=== PATIENT | male | born 1980 | race Two or more races ===

== ENCOUNTER 2017-06-30 22:16 | Inpatient (IN) | payer OTHER ==
[~2017-06-30] VITALS: Ht 185.4 cm; Wt 110.4 kg
[2017-06-30] MEDS ORDERED: LABETALOL HCL 5 MG/ML 20ML VIAL IV STA (22:33)
--- NOTE | 2017-06-30 23:17 | Diagnostic Imaging Report ---
EXAM: CHEST 2 VIEWS, PA and lateral INDICATION: Shortness of breath COMPARISON: None FINDINGS: LINES/TUBES: None LUNGS: Right lower lobe atelectasis. PLEURA: Small right pleural effusion. HEART AND MEDIASTINUM: Marked cardiomegaly. BONES AND SOFT TISSUES: No acute findings. IMPRESSION: Marked cardiomegaly and small right pleural effusion. Signed by: Dr. Nayeli Houston M.D. on 06/30/2017 11:14 PM
[2017-06-30 23:25] LABS: BASOPHILS # (AUTO) 0.1 (0.0-0.1); BASOPHILS % 0.6 % (0.0-1.0); EOSINOPHILS # (AUTO) 0.5 (0.0-0.4); EOSINOPHILS % 4.1 % (0.0-6.0); HEMATOCRIT 46.6 % (38.2-49.6); HEMOGLOBIN 15.1 g/dL (14.0-18.0); LYMPHOCYTES # (AUTO) 2.4 (1.0-3.2); LYMPHOCYTES % 18.7 % (18.0-39.1); MEAN CORPUSCULAR HEMOGLOBIN 27.6 pg (28-32); MEAN CORPUSCULAR HGB CONC 32.4 g/dL (31-35); MEAN CORPUSCULAR VOLUME 85.2 fL (81-99); MONOCYTES # (AUTO) 0.7 (0.2-0.8); MONOCYTES % 5.3 % (4.4-11.3); NEUTROPHILS # (AUTO) 8.9 (2.1-6.9); NEUTROPHILS % 70.8 % (38.7-80.0); PLATELET COUNT 322 x10e3/uL (140-360); RED BLOOD COUNT 5.47 x10e6/uL (4.3-5.7); RED CELL DISTRIBUTION WIDTH 14.6 % (11.7-14.4)
[2017-06-30 23:29] LABS: INR 1.54; PROTHROMBIN TIME 17.4 seconds (11.9-14.5)
[2017-06-30 23:30] LABS: PARTIAL THROMBOPLASTIN TIME 34.4 seconds (23.8-35.5)
[2017-06-30 23:38] LABS: ALBUMIN 3.7 g/dL (3.5-5.0); ANION GAP 19.5 mmol/L (8-16); CALCIUM 9.3 mg/dL (8.4-10.2); CREATININE, SERUM 1.58 mg/dL (0.72-1.25); POTASSIUM 3.5 mmol/L (3.5-5.1)
[2017-06-30 23:45] LABS: CREATINE KINASE MB 2.2 ng/mL (0-5.0)
[2017-07-01] VITALS (9 sets, daily range): BP systolic 110–149; BP diastolic 68–99
[2017-07-01] MEDS ORDERED: LISINOPRIL 10 MG TAB PO STA (01:15)
--- OUTSIDE RECORDS SUMMARY | 2017-07-01 01:58 | XMS REPORT ---
Author Author [facility] Address Unknown Phone Unavailable Care Team Providers Care Multimedia Programmer Name Role Phone SOMMER NICOLE Unavailable Unavailable Problems This patient has no known problems. Allergies, Adverse Reactions, Alerts This patient has no known allergies or adverse reactions. Medications This patient has no known medications. Results Test Description Test Time Test Comments Text Results Atomic Results Result Comments CHEST 2 VIEWS [place] [address] Patient Name: SHITAL LYONS MR #: [id number] : 1980 Age/Sex: 37/M Req #: [id number] Adm Physician: Ordered by: SOMMER NICOLE MD Report #: [id number] Location: ER Room/Bed: Procedure: [id number] DX/CHEST 2 VIEWS Exam Date: 06/30/17 Exam Time: 2244 REPORT STATUS: Signed EXAM: CHEST 2 VIEWS, PA and lateral INDICATION: Shortness of breath COMPARISON: None FINDINGS: LINES/TUBES : None LUNGS: Right lower lobe atelectasis. PLEURA: Small right pleural effusion. HEART AND MEDIASTINUM: Marked cardiomegaly. BONES AND SOFT TISSUES: No acute findings. IMPRESSION: Marked cardiomegaly and small right pleural effusion. Signed by: Dr. Reggie Osuna M.D. on 06/30/2017 11:14 PM Dictated By: REGGIE OSUNA MD 13 Transcribed By: GUSTAVO on 2313 COPY TO: SOMMER NICOLE MD
[2017-07-01] MEDS ORDERED: NIFEDIPINE 10 MG CAP PO STA (02:46)
[2017-07-01] MEDS ORDERED: NITROGLYCERIN 2% OINT 1 GM PKT TOP ONE (03:00)
[2017-07-01 07:37] LABS: CHOL/HDL RATIO 4.1 (3.9-4.7)
[2017-07-01 07:39] LABS: THYROID STIMULATING HORMONE 2.082 uIU/mL (0.350-4.940)
[2017-07-01 07:55] LABS: CREATINE KINASE MB 1.9 ng/mL (0-5.0)
[2017-07-01] MEDS: FUROSEMIDE INJ 10 MG/ML 4 ML VIAL IV SCH (08:25)
[2017-07-01] MEDS: ASPIRIN 81 MG ENTERIC COATED PO SCH (08:25)
[2017-07-01] MEDS: FAMOTIDINE 20 MG TAB PO SCH ×2 (08:25→17:19)
[2017-07-01] MEDS: LABETALOL HCL 200 MG TAB PO SCH ×2 (08:25→17:19)
[2017-07-01] MEDS: HEPARIN SOD (PORCINE) 5,000 UNIT/ML VIAL SC SCH ×2 (08:25→21:44)
[2017-07-01] MEDS ORDERED: LORAZEPAM0.5 MG PO (08:33)
[2017-07-01] MEDS ORDERED: CITALOPRAM HBR20 MG PO (08:33)
[2017-07-01] MEDS ORDERED: LISINOPRIL 10 MG TAB PO SCH (09:00)
[2017-07-01] MEDS ORDERED: ASPIRIN 325 MG TAB PO SCH (09:00)
--- NOTE | 2017-07-01 10:39 | History and Physical ---
PRIMARY CARE PHYSICIAN: None CHIEF COMPLAINT: Shortness of breath. HISTORY OF PRESENT ILLNESS: This is a 37-year-old man with a history of generalized anxiety disorder and hypertension, who consumes one 6-pack of beer daily and smokes half a pack of cigarettes per day, now developing shortness of breath for the past 10 days. He denies any chest pain. Denies any leg edema. Denies any history of similar symptoms. He is admitted for further evaluation and management. PAST MEDICAL HISTORY: Generalized anxiety disorder, hypertension, alcoholism, cigarette abuse. PAST SURGICAL HISTORY: None. ALLERGIES: PER ELECTRONIC MEDICAL RECORD. FAMILY HISTORY: Both mother and father have hypertension and diabetes mellitus. SOCIAL HISTORY: Patient is single. He has no children. Drinks a 6-pack of beer daily. Smokes a quarter pack of cigarettes per day. He works as a lithographic printing machinist. MEDICATIONS: Per electronic medical records. REVIEW OF SYSTEMS: Denies any dizziness or chest pain. PHYSICAL EXAMINATION VITAL SIGNS: Have been reviewed. In the emergency room, blood pressure is 214/161, pulse 126. GENERAL: A tired-appearing man resting in bed. HEENT: Anicteric. Pupils respond to light. No oral lesions. CARDIOVASCULAR: Normal S1 and S2. He has a 2/6 systolic murmur, permanent in the left chest wall. LUNGS: Moderate breath sounds slightly reduced and mildly coarse. ABDOMEN: Soft, nontender and nondistended. EXTREMITIES: No edema or calf tenderness. NEUROLOGICAL: Alert and oriented times 3. Moving all extremities. SKIN: Dry. PSYCHIATRIC: Normal affect. LABS: Reviewed. MEDICATIONS: Reviewed. ASSESSMENT AND PLAN: This is a 37-year-old man with: 1. Hypertensive emergency with shortness of breath: Blood pressure is better controlled. Will discontinue PEARL inhibitor in the setting of acute kidney injury. Will continue with labetalol. Will titrate as appropriate. Will also continue with aspirin 81 mg daily. 2. Acute congestive heart failure with right pleural effusion: The brain natriuretic peptide is 908. Echocardiogram is pending. Diurese the patient with Lasix. Follow I's and O's strictly. 3. Acute kidney injury: Will obtain a renal ultrasound to evaluate whether is a chronic component. Will monitor his output and renal function while he is being diuresed. 4. Acute transaminitis: Will screen for acute hepatitis. 5. Obesity: Body mass index is 32.1. There is a family history of diabetes in both parents. Blood glucose is 127. Will screen for diabetes and obtain a lipid panel. 6. Prophylaxis: Will use heparin and Pepcid. 7. Disposition: Monitor closely. Follow up echocardiogram. Follow up vital signs. Follow up I's and O's. Monitor renal function. Job#: [id number] RI
[2017-07-01] MEDS: CITALOPRAM HYDROBROMIDE 20 MG TAB PO SCH (11:11)
[2017-07-01] MEDS: LORAZEPAM 0.5 MG TAB PO PRN ×2 (11:20→12:00)
--- NOTE | 2017-07-01 13:56 | Diagnostic Imaging Report ---
PROCEDURE:US RETROPERITONEAL ( KIDNEY ). COMPARISON:None. INDICATIONS:SONYA vs CKD TECHNIQUE: Barahona-scale and color sonographic images of the bilateral kidneys and bladder where obtained in transverse and longitudinal planes. FINDINGS: RIGHT KIDNEY: 9.7 x 3.6 x 4 cm, cortex 1.8 cm Cysts: None Solid masses: None Stones: None Hydronephrosis: None Echogenicity: Normal LEFT KIDNEY: 10.0 x 5.2 x 5.1 cm, cortex 2.3 cm Cysts: None Solid masses: None Stones: None Hydronephrosis: None Echogenicity: Normal Bladder: Unremarkable Prostate: 3.1 x 3 x 3.7 cm (17.7 cc), normal in size Trace pelvic ascites. CONCLUSION: 1. Normal ultrasound of the kidneys and bladder. 2. Nonspecific trace pelvic free fluid. 1. Dictated by: Jorden Winters M.D. on 07/01/2017 at 13:57 Electronically approved by: Jorden Winters M.D. on 07/01/2017 at 13:57
[2017-07-02] VITALS (8 sets, daily range): BP systolic 106–135; BP diastolic 72–97
[2017-07-02] MEDS: LORAZEPAM 0.5 MG TAB PO PRN ×2 (00:09→12:09)
[2017-07-02 07:06] LABS: BASOPHILS # (AUTO) 0.1 (0.0-0.1); BASOPHILS % 0.6 % (0.0-1.0); EOSINOPHILS # (AUTO) 0.4 (0.0-0.4); HEMATOCRIT 40.1 % (38.2-49.6); LYMPHOCYTES # (AUTO) 2.9 (1.0-3.2); LYMPHOCYTES % 26.8 % (18.0-39.1); MEAN CORPUSCULAR HEMOGLOBIN 26.8 pg (28-32); MEAN CORPUSCULAR HGB CONC 31.4 g/dL (31-35); MEAN CORPUSCULAR VOLUME 85.3 fL (81-99); MONOCYTES # (AUTO) 0.9 (0.2-0.8); NEUTROPHILS # (AUTO) 6.5 (2.1-6.9); NEUTROPHILS % 60.3 % (38.7-80.0); PLATELET COUNT 236 x10e3/uL (140-360); RED CELL DISTRIBUTION WIDTH 14.7 % (11.7-14.4)
[2017-07-02 07:16] LABS: HEMOGLOBIN 12.6 g/dL (14.0-18.0)
[2017-07-02 07:29] LABS: ANION GAP 12.6 mmol/L (8-16); CALCIUM 8.7 mg/dL (8.4-10.2); CREATININE, SERUM 1.62 mg/dL (0.72-1.25); POTASSIUM 3.6 mmol/L (3.5-5.1)
[2017-07-02 07:42] LABS: CREATINE KINASE MB 1.9 ng/mL (0-5.0)
[2017-07-02] MEDS: FUROSEMIDE INJ 10 MG/ML 4 ML VIAL IV SCH (08:43)
[2017-07-02] MEDS: ASPIRIN 81 MG ENTERIC COATED PO SCH (10:03)
[2017-07-02] MEDS: LABETALOL HCL 200 MG TAB PO SCH (10:03)
[2017-07-02] MEDS: FAMOTIDINE 20 MG TAB PO SCH ×2 (10:03→16:48)
[2017-07-02] MEDS: HEPARIN SOD (PORCINE) 5,000 UNIT/ML VIAL SC SCH ×2 (10:03→20:49)
[2017-07-02] MEDS: CITALOPRAM HYDROBROMIDE 20 MG TAB PO SCH (10:03)
--- NOTE | 2017-07-02 11:40 | Consultation ---
DATE OF CONSULTATION: July 02, 2017 REASON FOR CONSULTATION: Systolic heart failure. CHIEF COMPLAINT: Shortness of breath. HPI: This is a 37-year-old male known with hypertension, anxiety and tobacco use. Patient presents to [facility] ER with complaint of 1 to 2 weeks of shortness of breath with minimal exertion. The patient on arrival was noted to be severely hypertensive with blood pressure of 210s/160s. He was given medications and currently his blood pressure is now 130s/90s. Cardiology was consulted secondary to ultrasound of the heart done showing on prelim EF of about 30% to 35%. Patient seen in room in no acute distress. States he feels much better since being here in the hospital on therapy. He reports he was taking Bystolic and lisinopril years ago; however, he stopped several years ago secondary to losing his insurance and unable to afford his medications. Denies any orthopnea, any PND, any lower extremity edema. Denies any chest pain. PAST MEDICAL HISTORY: Anxiety, hypertension, tobacco use. SURGICAL HISTORY: No known surgeries. SOCIAL HISTORY: He is single. No kids. He is a photographic artist by occupation. He drinks alcohol, about a 6-pack per day. He states that now he drinks about 2 to 3 beers per day. Positive tobacco use. Reports about 6 cigarettes per day for the past 10 years. FAMILY HISTORY: Mother is alive at age 68, reports history of hypertension and diabetes. Father is alive at age 68 with history of hypertension and diabetes. ALLERGIES. NO KNOWN ALLERGIES. HOME MEDICATIONS: None, other than years ago he was taking Bystolic and lisinopril. REVIEW OF SYSTEMS GENERAL: Denies any weight change, any fevers, chills, night sweats. SKIN: No rashes. No sores or lumps. HEENT. No trauma. No headaches. No nausea or vomiting. No blurry vision or double vision. No hearing impairment. No earache. No stuffiness, epistaxis. No sore throat, bleeding gums or swollen neck. CARDIAC: Denies any chest pain. Positive for dyspnea on exertion. Denies any lower extremity edema or any orthopnea or PND. RESPIRATORY: Positive shortness of breath. Denies any cough or any hemoptysis. GI: Good appetite. Denies any nausea or vomiting. Positive for an episode of diarrhea recently. URINARY: Denies any frequency, urgency, polyuria, hematuria or nocturia. VASCULAR: Denies any lower extremity edema, any claudication. MUSCULOSKELETAL: Denies any muscle weakness, any joint pains. NEUROLOGIC: Denies any numbness, tingling, tremors, weakness, paralysis, blackouts, seizures. HEMATOLOGY: No bleeding and no bruising reported. ENDOCRINE: Denies any heat or cold intolerance or any polyuria, polydipsia, polyphagia. PHYSICAL EXAMINATION VITALS: Height 73 inches, weight 243 pounds. BMI 32. Vital signs on admission: Blood pressure 214/162, pulse 126. Temperature 98.1. Current vital signs: Temperature 96.4, pulse 78, respiratory rate 16, blood pressure 135/97. Pulse ox 99% on room air. GENERAL: Appears stated age. Reliable informant. SKIN: No rashes or bruises noted. HEENT: Normocephalic. Pupils equal and reactive. Extraocular motor intact. No thyromegaly. No JVD. No carotid bruit. Oral mucosa pink. Trachea is midline. HEART: Regular rate and rhythm. Soft systolic murmur on the left upper sternal border noted. PMI about the 5th intercostal space. LUNGS: Bilateral crackles noted at the bases, diminished more so on the right. ABDOMEN: Soft, nontender, nondistended. No organomegaly noted. MUSCULOSKELETAL: Good muscle strength throughout. No lower extremity edema noted. VASCULAR: There are +2 radial pulses bilaterally and +1 DP and PT pulses bilaterally. NEUROLOGIC: Cranial nerves II through XII seem intact. LABS: White count 10. Hemoglobin 12, hematocrit 40. Platelets 236. Sodium 141, potassium 3.6, bicarb 31. BUN 25, creatinine 1.6. A1c is 6. Troponin 0.02, next 0.1, next 0.14. TSH is 2.0. LDL 80, HDL 31. EKG showing sinus tach with nonspecific changes. IMAGING: Chest x-ray showing small right pleural effusion. ASSESSMENT 1. Cardiomyopathy 2. Acute systolic heart failure possible secondary to uncontrolled hypertension , Idiopathic, third cause 3. Acute kidney injury. 4. Tobacco use. 5. Anxiety. 6. Noncompliance. PLAN: The patient presents with shortness of breath for several weeks with severely uncontrolled hypertension. Patient has been noncompliant with his therapy. Prelim echocardiogram showing depressed EF. Currently the patient is on antihypertensive therapy and diuretics with improved symptoms. Will continue to monitor the patient and adjust antihypertensives accordingly. Echo will be reviewed by cardiology attending. Smoking cessation discussed with the patient at length. Also discussed compliance with medical therapy. Patient verbalized understanding. We will continue to follow the patient and adjust cardiac therapy as course dictates. Dictated by: Chaka Lambert NP Seen and evaluated We discussed Rx Job#: [id number] ISIDORO NOEL
[2017-07-02] MEDS: CARVEDILOL 12.5 MG TAB PO SCH ×2 (12:07→16:48)
[2017-07-02] MEDS: LOSARTAN POTASSIUM 25 MG TAB PO SCH (12:07)
[2017-07-03] VITALS (7 sets, daily range): BP systolic 128–153; BP diastolic 83–101
[2017-07-03 07:44] LABS: ALBUMIN 3.1 g/dL (3.5-5.0); ANION GAP 13.8 mmol/L (8-16); CALCIUM 8.8 mg/dL (8.4-10.2); CREATININE, SERUM 1.76 mg/dL (0.72-1.25); POTASSIUM 3.8 mmol/L (3.5-5.1)
[2017-07-03] MEDS: LOSARTAN POTASSIUM 25 MG TAB PO SCH (09:00)
--- NOTE | 2017-07-03 09:12 | Progress Note ---
DATE: July 02, 2017 TIME: 6:50 a.m. OVERNIGHT: No events. REVIEW OF SYSTEMS: Denies any dizziness or chest pain. PHYSICAL EXAMINATION VITAL SIGNS: Reviewed. GENERAL: A tired-appearing man resting in bed. HEENT: Anicteric. CARDIOVASCULAR: Normal S1 and S2. LUNGS: Moderate breath sounds. ABDOMEN: Soft, nontender and nondistended. EXTREMITIES: No edema or calf tenderness. NEUROLOGICAL: Alert and oriented times 3. Moving all extremities. SKIN: Dry. PSYCHIATRIC: Flat affect. LABS: Reviewed. MEDICATIONS: Reviewed. ASSESSMENT: A 37-year-old man with: 1. Hypertensive emergency with shortness of breath. 2. Acute systolic congestive heart failure with right pleural effusion: Left ventricular ejection fraction 25%. 3. Acute kidney injury. 4. Acute transaminitis. 5. Obesity: Body mass index 32.1. PLAN 1. Cardiology evaluation pending. 2. Renal ultrasound negative. 3. Trace pericardial effusion. 4. Alcohol abuse. Counseled on cessation. 5. Follow cardiology recommendations. Job#: [id number] TN
--- NOTE | 2017-07-03 09:52 | Progress Note ---
DATE: July 03, 2017 TIME: 8:32 a.m. OVERNIGHT: No events. REVIEW OF SYSTEMS: Denies any dizziness. PHYSICAL EXAMINATION VITAL SIGNS: Reviewed. GENERAL: A tired-appearing man resting in bed. HEENT: Anicteric. Pupils respond to light. No oral lesions. CARDIOVASCULAR: He has a 2/6 systolic murmur. Normal S1 and S2. LUNGS: Moderate breath sounds. ABDOMEN: Soft, nontender, and nondistended. EXTREMITIES: No edema. SKIN: Dry. PSYCHIATRIC: Normal affect. LABS: Reviewed. MEDICATIONS: Reviewed. ASSESSMENT: A 37-year-old man with 1. Hypertensive emergency with shortness of breath. 2. Acute exacerbation of systolic congestive heart failure, ejection fraction is 20 to 25%. 3. Acute kidney injury. 4. Acute transaminitis. 5. Obesity: Body mass index 32.1. 6. Alcoholism. PLAN 1. Counseled on alcohol reduction or cessation. 2. Poor ejection fraction at 20 to 25%. Further cardiology evaluation pending. 3. Caloric restriction and weight loss needed. 4. Leukocytosis has resolved. 5. Renal function still suppressed. His renal ultrasound was negative. Likely, he has some degree of chronic renal dysfunction, possibly chronic kidney disease stage 3. 6. Continue medical management at this time. 7. Follow up cardiology recommendations. 8. Follow up hepatitis panel. 9. He still has elevated LFTs. Follow up hepatitis panel. Job#: [id number]
[2017-07-03] MEDS: FUROSEMIDE INJ 10 MG/ML 4 ML VIAL IV SCH (10:42)
[2017-07-03] MEDS: CITALOPRAM HYDROBROMIDE 20 MG TAB PO SCH (10:42)
[2017-07-03] MEDS: FAMOTIDINE 20 MG TAB PO SCH ×2 (10:42→16:33)
[2017-07-03] MEDS: ASPIRIN 81 MG ENTERIC COATED PO SCH (10:42)
[2017-07-03] MEDS: HEPARIN SOD (PORCINE) 5,000 UNIT/ML VIAL SC SCH ×2 (10:43→20:53)
[2017-07-03] MEDS: CARVEDILOL 12.5 MG TAB PO SCH ×2 (10:43→16:34)
[2017-07-03] MEDS: LORAZEPAM 0.5 MG TAB PO PRN (10:43)
[2017-07-04] VITALS (8 sets, daily range): BP systolic 113–167; BP diastolic 70–119
[2017-07-04] MEDS: LORAZEPAM 0.5 MG TAB PO PRN ×2 (00:04→20:26)
[2017-07-04] MEDS: HYDRALAZINE HCL 20 MG/ML VIAL IV PRN ×2 (01:59→08:00)
[2017-07-04 07:16] LABS: ALBUMIN 2.9 g/dL (3.5-5.0); ANION GAP 13.2 mmol/L (8-16); CALCIUM 8.6 mg/dL (8.4-10.2); CREATININE, SERUM 1.43 mg/dL (0.72-1.25); POTASSIUM 3.2 mmol/L (3.5-5.1)
[2017-07-04] MEDS: FAMOTIDINE 20 MG TAB PO SCH ×2 (07:30→17:15)
[2017-07-04] MEDS: FUROSEMIDE INJ 10 MG/ML 4 ML VIAL IV SCH (10:15)
[2017-07-04] MEDS: CITALOPRAM HYDROBROMIDE 20 MG TAB PO SCH (10:15)
[2017-07-04] MEDS: ASPIRIN 81 MG ENTERIC COATED PO SCH (10:15)
[2017-07-04] MEDS: CARVEDILOL 12.5 MG TAB PO SCH (10:16)
[2017-07-04] MEDS: LOSARTAN POTASSIUM 25 MG TAB PO SCH (10:16)
[2017-07-04] MEDS: HEPARIN SOD (PORCINE) 5,000 UNIT/ML VIAL SC SCH ×2 (10:17→20:35)
[2017-07-04] MEDS ORDERED: POTASSIUM CHLORIDE 20 MEQ TAB CR PO SCH ×2 (13:09→19:15)
[2017-07-04] MEDS: HYDROCHLOROTHIAZIDE 25 MG TAB PO SCH (13:22)
[2017-07-04] MEDS ORDERED: LOSARTAN POTASSIUM 25 MG TAB PO SCH (17:00)
[2017-07-04] MEDS ORDERED: CARVEDILOL 12.5 MG TAB PO SCH (17:00)
[2017-07-05] VITALS: BP 134/98
[2017-07-05 04:00] VITALS: BP 153/105
[2017-07-05 07:14] LABS: BASOPHILS % 0.3 % (0.0-1.0); EOSINOPHILS # (AUTO) 0.8 (0.0-0.4); EOSINOPHILS % 8.8 % (0.0-6.0); HEMATOCRIT 40.9 % (38.2-49.6); LYMPHOCYTES # (AUTO) 2.3 (1.0-3.2); LYMPHOCYTES % 26.1 % (18.0-39.1); MEAN CORPUSCULAR HEMOGLOBIN 27.2 pg (28-32); MEAN CORPUSCULAR HGB CONC 31.8 g/dL (31-35); MEAN CORPUSCULAR VOLUME 85.6 fL (81-99); MONOCYTES # (AUTO) 0.7 (0.2-0.8); MONOCYTES % 7.6 % (4.4-11.3); PLATELET COUNT 267 x10e3/uL (140-360); RED BLOOD COUNT 4.78 x10e6/uL (4.3-5.7); RED CELL DISTRIBUTION WIDTH 14.9 % (11.7-14.4)
[2017-07-05 07:42] LABS: ANION GAP 12.7 mmol/L (8-16); CALCIUM 8.8 mg/dL (8.4-10.2); CREATININE, SERUM 1.34 mg/dL (0.72-1.25); POTASSIUM 3.7 mmol/L (3.5-5.1)
[2017-07-05 08:26] VITALS: BP 136/97
[2017-07-05] MEDS ORDERED: CARVEDILOL 12.5 MG TAB PO SCH (09:00)
[2017-07-05] MEDS ORDERED: LOSARTAN POTASSIUM 25 MG TAB PO SCH (09:00)
[2017-07-05] MEDS: FAMOTIDINE 20 MG TAB PO SCH (09:30)
[2017-07-05] MEDS: CITALOPRAM HYDROBROMIDE 20 MG TAB PO SCH (09:30)
[2017-07-05] MEDS: ASPIRIN 81 MG ENTERIC COATED PO SCH (09:30)
[2017-07-05] MEDS: HEPARIN SOD (PORCINE) 5,000 UNIT/ML VIAL SC SCH (09:30)
[2017-07-05 09:52] VITALS: BP 136/97
[2017-07-05] MEDS ORDERED: ESIDRIX25 MG PO (11:04)
[2017-07-05] MEDS ORDERED: COREG12.5 MG PO (11:04)
[2017-07-05] MEDS ORDERED: COZAAR25 MG PO (11:04)
[2017-07-05] MEDS ORDERED: ASPIRIN EC81 MG PO (11:04)
[2017-07-05] MEDS ORDERED: [UNRECOGNIZED DRUG - OTHER] (11:06)
[2017-07-05 12:00] VITALS: BP 121/70
[2017-07-05] MEDS: HYDROCHLOROTHIAZIDE 25 MG TAB PO SCH (12:00)
--- NOTE | 2017-07-05 17:47 | Discharge Summary ---
PRINCIPAL DIAGNOSIS 1. Hypertensive emergency with shortness of breath. 1. Right pleural effusion. 2. Acute transaminitis. 3. Obesity. 4. Cardiomyopathy. 5. Acute systolic congestive heart failure secondary to uncontrolled hypertension, third cause idiopathic. 6. Acute kidney injury. 7. Chronic kidney injury, possibly stage 3. 8. Tobacco abuse. 9. Anxiety. SECONDARY DIAGNOSIS 1. Cigarette abuse. 2. Alcoholism. 3. Generalized anxiety disorder. 4. Hypertension. CHIEF COMPLAINT: Shortness of breath and rapidly escalating fatigue. HISTORY OF PRESENT ILLNESS: Patient relayed that he had had escalating episodes of shortness of breath over the past 10 days, exacerbated by effort. Denied any chest pain or other . HOSPITAL COURSE: Patient was admitted through the emergency room after having received medications to reduce blood pressure and ongoing blood pressure management, by day 1 reducing the patient's blood pressure systolic to less than 130. Echocardiogram was obtained, and cardiology consult was secured on day 2 due to echo results with an ejection fraction of 20% to 25% and trace pericardial effusion. Antihypertensive medications titrated. On day 3, continued renal monitoring and medication titration for systolic blood pressure management and [employer] secured. On the 04 of July, [employer] came to obtain documentation for reimbursement and the patient. Continued renal monitoring and blood pressure titration per the assembled team with noted trending values downward. On July 05, the final day of the hospitalization, the patient was in stable condition and was cleared for discharge by Cardiology. The patient verbalized the acknowledgement of prior teaching concerning medication compliance, refraining from alcohol use, and tobacco cessation. DISCHARGE MEDICATIONS: New prescriptions for discharge include aspirin 81 mg p.o. daily, Coreg 12.5 mg p.o. q.12 h., hydrochlorothiazide 25 mg tablets once p.o. every day, losartan 25 mg tablets x2 for 50 mg p.o. q.12 h. Additionally, the patient was instructed to resume home medications which included citalopram 30 mg p.o. daily and Ativan 0.5 mg as needed for anxiety. FOLLOWUP: This patient was instructed to follow up with cardiology, Dr. Von Mo, in 5 to 7 days as well as to establish care with a new primary care provider, internal medicine physician Dr. Vicente Kan, in 5 to 7 days. Additional instruction concerning use of [employer] was verified by the patient as well as following his DASH diet. CONDITION ON DISCHARGE: Stable. The patient left the facility in good spirits via wheelchair per nursing staff, denied all needs and voiced all complaints. Dictated by: Ad Luz NP VICENTE KAN MD Job#: [id number]
== END 2017-07-05 15:20 | disposition home or self-care (01) | DRG 291 ==
LOC: ER 22:16 → ERHOLD 07-01 01:54 → MED/SURG 07-01 03:40 → OBSVTOIN 07-03 12:59
PROVIDERS: ADMIT Internal Medicine; ATTEND Internal Medicine
DX: I13.0 Hypertensive heart and chronic kidney disease with heart failure and stage 1 through stage 4 chronic kidney disease, or unspecified chronic kidney disease (principal); I50.21 Acute systolic (congestive) heart failure; N17.9 Acute kidney failure, unspecified; N18.3 Chronic kidney disease, stage 3 (moderate); I42.9 Cardiomyopathy, unspecified; I31.3 Pericardial effusion (noninflammatory); E66.9 Obesity, unspecified; Z68.32 Body mass index [BMI] 32.0-32.9, adult; F10.20 Alcohol dependence, uncomplicated; F17.210 Nicotine dependence, cigarettes, uncomplicated; F41.1 Generalized anxiety disorder; Z91.19 Patient's noncompliance with other medical treatment and regimen; E87.6 Hypokalemia
CPT/HCPCS: 36415; 71046; 76770; 80048; 80053; 80061; 82550; 82553; 83036; 83880; 84443; 84484; 85025; 85610; 85730; 93005; 93306; 99284; G0378; J0360; J1644; J1940

== ENCOUNTER 2021-05-03 12:53 | Emergency (ER) | payer OTHER ==
[~2021-05-03] VITALS: Ht 185.4 cm; Wt 110.2 kg
[~2021-05-03 12:53] MED LIST: ASPIRIN EC81 MG PO; CITALOPRAM HBR20 MG PO; COREG12.5 MG PO; COZAAR25 MG PO; ESIDRIX25 MG PO; LORAZEPAM0.5 MG PO; [UNRECOGNIZED DRUG - OTHER]
[2021-05-03 13:33] LABS: BASOPHILS % 0.4 % (0.0-1.0); EOSINOPHILS # (AUTO) 0.6 (0.0-0.4); EOSINOPHILS % 6.3 % (0.0-6.0); HEMATOCRIT 41.9 % (38.2-49.6); HEMOGLOBIN 13.5 g/dL (14.0-18.0); LYMPHOCYTES # (AUTO) 1.4 (1.0-3.2); LYMPHOCYTES % 13.8 % (18.0-39.1); MEAN CORPUSCULAR HEMOGLOBIN 29.1 pg (28-32); MEAN CORPUSCULAR HGB CONC 32.2 g/dL (31-35); MEAN CORPUSCULAR VOLUME 90.3 fL (81-99); MONOCYTES # (AUTO) 0.6 (0.2-0.8); MONOCYTES % 5.6 % (4.4-11.3); NEUTROPHILS # (AUTO) 7.4 (2.1-6.9); NEUTROPHILS % 73.6 % (38.7-80.0); PLATELET COUNT 280 x10e3/uL (140-360); RED BLOOD COUNT 4.64 x10e6/uL (4.3-5.7)
[2021-05-03 13:36] LABS: INR 0.96; PROTHROMBIN TIME 13.5 seconds (11.9-14.5)
[2021-05-03 13:37] LABS: PARTIAL THROMBOPLASTIN TIME 36.8 seconds (23.8-35.5)
[2021-05-03] MEDS ORDERED: ALBUTEROL/IPRATROPIUM 3 ML NEB NEB ONE (13:45)
[2021-05-03 13:46] LABS: ANION GAP 16.2 mmol/L (8-16); CALCIUM 9.7 mg/dL (8.4-10.2); CREATININE, SERUM 1.11 mg/dL (0.72-1.25); POTASSIUM 3.2 mmol/L (3.5-5.1)
[2021-05-03 13:53] LABS: CREATINE KINASE MB 8.1 ng/mL (0-5.0)
[2021-05-03] MEDS ORDERED: POTASSIUM CHLORIDE 10MEQ EA PO ONE (14:15)
[2021-05-03 15:12] VITALS: BP 142/99
== END 2021-05-03 15:20 | disposition home or self-care (01) ==
LOC: ER 13:28
DX: J20.9 Acute bronchitis, unspecified (principal); R06.02 Shortness of breath; I10 Essential (primary) hypertension; E11.65 Type 2 diabetes mellitus with hyperglycemia; E78.5 Hyperlipidemia, unspecified; F41.9 Anxiety disorder, unspecified; Z20.822 Contact with and (suspected) exposure to COVID-19
CPT/HCPCS: 36415; 71045; 80053; 82550; 82553; 83880; 84484; 85025; 85610; 85730; 93005; 94640; 94799; 99284; U0002

== ENCOUNTER 2021-09-06 10:55 | Emergency (ER) | payer OTHER ==
[~2021-09-06] VITALS: Ht 185.4 cm; Wt 108.9 kg
[2021-09-06] MEDS ORDERED: CARVEDILOL 12.5 MG TAB PO ONE (11:15)
[2021-09-06] MEDS ORDERED: NIFEDIPINE CR 30 MG TAB PO ONE (11:30)
[2021-09-06] MEDS ORDERED: HYDROCHLOROTHIA25 MG PO (12:45)
[2021-09-06] MEDS ORDERED: PROCARDIA XL30 MG PO (12:45)
[2021-09-06] MEDS ORDERED: CARVEDILOL25 MG PO (12:45)
[2021-09-06 12:47] VITALS: BP 144/107
[2021-09-07] MEDS ORDERED: HYDROCHLOROTHIAZIDE 25 MG TAB PO SCH (09:00)
== END 2021-09-06 12:48 | disposition home or self-care (01) ==
LOC: ER 11:36
DX: I10 Essential (primary) hypertension (principal); Z76.0 Encounter for issue of repeat prescription; E11.9 Type 2 diabetes mellitus without complications; F41.9 Anxiety disorder, unspecified; Z79.899 Other long term (current) drug therapy; Z79.82 Long term (current) use of aspirin
CPT/HCPCS: 99283

== ENCOUNTER 2022-05-05 13:45 | Emergency (ER) | payer OTHER ==
[~2022-05-05] VITALS: Ht 185.4 cm; Wt 108.9 kg
[~2022-05-05 13:45] MED LIST changes: +CARVEDILOL25 MG PO; +HYDROCHLOROTHIA25 MG PO; +PROCARDIA XL30 MG PO
[2022-05-05] MEDS ORDERED: ALBUTEROL/IPRATROPIUM 3 ML NEB NEB ONE (14:15)
[2022-05-05] MEDS ORDERED: METHYLPREDNISOLONE SOD SUCC 125 MG/2ML VIAL IV ONE (14:15)
[2022-05-05 14:35] LABS: BASOPHILS # (AUTO) 0.1 (0.0-0.1); BASOPHILS % 0.6 % (0.0-1.0); EOSINOPHILS # (AUTO) 1.1 (0.0-0.4); EOSINOPHILS % 9.4 % (0.0-6.0); HEMATOCRIT 47.7 % (38.2-49.6); HEMOGLOBIN 14.6 g/dL (14.0-18.0); LYMPHOCYTES # (AUTO) 2.4 (1.0-3.2); MEAN CORPUSCULAR HEMOGLOBIN 29.3 pg (28-32); MEAN CORPUSCULAR HGB CONC 30.6 g/dL (31-35); MEAN CORPUSCULAR VOLUME 95.8 fL (81-99); MONOCYTES # (AUTO) 0.4 (0.2-0.8); MONOCYTES % 3.8 % (4.4-11.3); NEUTROPHILS # (AUTO) 7.5 (2.1-6.9); NEUTROPHILS % 64.9 % (38.7-80.0); PLATELET COUNT 428 x10e3/uL (140-360); RED BLOOD COUNT 4.98 x10e6/uL (4.3-5.7); RED CELL DISTRIBUTION WIDTH 13.1 % (11.7-14.4)
[2022-05-05] MEDS ORDERED: METHYLPREDNISOLONE SOD SUCC 125 MG/2ML VIAL ONE (14:48)
[2022-05-05] MEDS ORDERED: ALBUTEROL/IPRATROPIUM 3 ML NEB ONE (14:48)
[2022-05-05 14:57] LABS: ALBUMIN 3.7 g/dL (3.5-5.0); ALBUMIN/GLOBULIN RATIO 0.9 (0.8-2.0); ANION GAP 15.3 mmol/L (8-16); CALCIUM 8.9 mg/dL (8.4-10.2); CREATININE, SERUM 1.33 mg/dL (0.72-1.25); POTASSIUM 3.3 mmol/L (3.5-5.1)
[2022-05-05] MEDS ORDERED: ALBUTEROL SULF 0.083% NEB SOLN 3 ML NEB NEB STA (15:11)
[2022-05-05] MEDS ORDERED: BROMFED DM COU118 ML PO (15:17)
[2022-05-05] MEDS ORDERED: AEROECLIPSE II1 EACH PO (15:17)
[2022-05-05] MEDS ORDERED: PREDNISONE50 MG PO (15:17)
[2022-05-05] MEDS ORDERED: ALBUTEROL2.5 MG/0.5 PO (15:17)
[2022-05-05] MEDS ORDERED: AZITHROMYCIN250 MG PO (15:17)
== END 2022-05-05 15:47 | disposition home or self-care (01) ==
LOC: ER 13:49
DX: R50.9 Fever, unspecified (principal); J40 Bronchitis, not specified as acute or chronic; R05.9 Cough, unspecified; E11.65 Type 2 diabetes mellitus with hyperglycemia; I10 Essential (primary) hypertension; I50.9 Heart failure, unspecified; E78.5 Hyperlipidemia, unspecified; F41.9 Anxiety disorder, unspecified; Z20.822 Contact with and (suspected) exposure to COVID-19
CPT/HCPCS: 36415; 71045; 80053; 83880; 84484; 85025; 93005; 99283; J2930; U0002